=== PATIENT | female | born 1955 | race Caucasian/White ===

== ENCOUNTER 2017-09-11 12:09 | Emergency (ER) | payer OTHER, SELFPAY ==
--- OUTSIDE RECORDS SUMMARY | 2017-09-11 12:11 | XMS REPORT ---
:1955 Author Organization eClinicalWorks Care Team Providers Name Role Phone Jennifer Fountain Provider Role Unavailable Allergies No Known Allergies Problems Problem Type Condition Code Onset Dates Condition Status Problem Seasonal allergies J30.2 Active Problem Prediabetes R73.03 Active Problem Acquired hypothyroidism E03.9 Active Problem Breast cancer C50.919 Active Problem Hypertension, unspecified type I10 Active Problem GERD (gastroesophageal reflux K21.9 Active disease) Medications Medication Code Code Instructions Start End Status Dosage System Date Date Levothyroxine [facility] 40531673360 88 MCG Orally August 02, Active 1 tablet Sodium Once a day 2018 on an empty stomach in the morning Results No Known Results Summary Purpose eClinicalWorks Submission
--- OUTSIDE RECORDS SUMMARY | 2017-09-11 12:12 | XMS REPORT ---
:1955 Author Organization eClinicalWorks Care Team Providers Name Role Phone Jennifer Fountain Provider Role Unavailable Allergies, Adverse Reactions, Alerts Substance Reaction Event Type Sulfa Info Not Available Drug Allergy PCN Info Not Available Drug Allergy Problems Problem Type Condition Code Onset Dates Condition Status Assessment Abnormal kidney function study R94.4 Active Assessment Acquired hypothyroidism E03.9 Active Assessment Hypertension, unspecified type I10 Active Assessment Prediabetes R73.03 Active Problem Seasonal allergies J30.2 Active Problem Prediabetes R73.03 Active Problem Acquired hypothyroidism E03.9 Active Problem Breast cancer C50.919 Active Problem Hypertension, unspecified type I10 Active Problem GERD (gastroesophageal reflux K21.9 Active disease) Medications Medication Code Code Instructions Start End Status Dosage System Date Date Atenolol-Chlor [facility] 42325669736 50-25 MG Active TAKE 1 thalidone TABLET BY MOUTH DAILY Synthroid [facility] 77883883822 88 MCG Orally Active 1 tablet Once a day on an empty stomach in the morning Results Name Result Date Reference Range Unit Abnormality Flag TSH ----TSH 0.79 [id number] 0.40-4.50 mIU/L N RENAL FUNCTION PANEL ----CHLORIDE 100 09135875 98-110 mmol/L N ----POTASSIUM 3.2 89800252 3.5-5.3 mmol/L L ----SODIUM 140 46150401 135-146 mmol/L N ----BUN/CREATININ NOT APPLICABLE [id number] 6-22 (calc) E RATIO ----eGFR 74 [id number] > OR=60 mL/min/1.73 N ALGERIAN m2 ----CALCIUM 9.4 49819571 8.6-10.4 mg/dL N ----CARBON 33 [id number] 20-31 mmol/L H DIOXIDE ----ALBUMIN 4.4 59321562 3.6-5.1 g/dL N ----PHOSPHATE ( 3.4 [id number] 2.5-4.5 mg/dL N PHOSPHORUS) ----GLUCOSE 86 20170731 65-99 mg/dL N ----UREA NITROGEN 15 [id number] 7-25 mg/dL N (BUN) ----CREATININE 0.94 20170731 0.50-0.99 mg/dL N ----eGFR NON-AFR. 64 [id number] > OR=60 mL/min/1.73 N ALGERIAN m2 HEMOGLOBIN A1c ----HEMOGLOBIN 5.7 [id number] <5.7 % of total H A1c Hgb Summary Purpose eClinicalWorks Submission
--- NOTE | 2017-09-11 13:27 | RAD REPORT ---
EXAM DESCRIPTION: RAD - Ankle Left 3 View -09/11/2017 1:19 pm CLINICAL HISTORY: Left ankle pain FINDINGS: No fracture or dislocation is seen. Soft tissue swelling is present.
--- NOTE | 2017-09-11 15:03 | ER ---
Nurse's Notes [facility] Name: Lily Guzman Age: 62 yrs Sex: Female : 1955 Arrival Date: 09/11/2017 Time: 12:10 Bed 12 Private MD: DILAN LOZA Diagnosis: Sprain of ankle Presentation: 09/11 12:25 Presenting complaint: Patient states: Left ankle pain x 5 days. Pain began while hb walking in flip flops at [facility], became worse by the end of the day. Unable to bear weight. Transition of care: patient was not received from another setting of care. Onset of symptoms was September 07, 2017. Risk Assessment: Do you want to hurt yourself or someone else? Patient reports no desire to harm self or others. Initial Sepsis Screen: Does the patient meet any 2 criteria? No. Patient's initial sepsis screen is negative. Does the patient have a suspected source of infection? No. Patient's initial sepsis screen is negative. Care prior to arrival: None. 12:25 Method Of Arrival: Wheelchair hb 12:25 Acuity: MARIELA 4 hb Historical: - Allergies: 12:31 PENICILLINS; hb 12:31 Sulfa (Sulfonamide Antibiotics); hb - Home Meds: 12:31 atenolol 25 mg Oral tab [Active]; levothyroxine oral [Active]; hb - PMHx: 12:31 Breast CA; Hypertension; hb - PSHx: 12:31 Mastectomy - bilateral; hb - Immunization history:: Adult Immunizations up to date. - Social history:: Smoking status: Patient/guardian denies using tobacco. - Ebola Screening: : No symptoms or risks identified at this time. Screenin:46 Abuse screen: Denies threats or abuse. Denies injuries from another. Nutritional rv screening: No deficits noted. Tuberculosis screening: No symptoms or risk factors identified. Fall Risk None identified. Assessment: 14:44 General: Appears in no apparent distress. comfortable, Behavior is calm, cooperative. rv Pain: Complains of pain in anterior aspect of left ankle and dorsum of left foot Pain currently is 8 out of 10 on a pain scale. Neuro: Level of Consciousness is awake, alert, obeys commands, Oriented to person, place, time, situation. Cardiovascular: Heart tones S1 S2 present. Respiratory: Airway is patent. GI: No signs and/or symptoms were reported involving the gastrointestinal system. : No signs and/or symptoms were reported regarding the genitourinary system. EENT: No signs and/or symptoms were reported regarding the EENT system. Derm: Skin is intact. Musculoskeletal: Range of motion: limited in left ankle Swelling present in anterior aspect of left ankle and dorsum of left foot. Vital Signs: 12:29 BP 138 / 70; Pulse 60; Resp 16; Temp 98.5; Pulse Ox 100% on R/A; Weight 74.39 kg; hb Height 5 ft. 3 in. (160.02 cm); Pain 10/10; 14:57 BP 120 / 56; rv 12:29 Body Mass Index 29.05 (74.39 kg, 160.02 cm) hb ED Course: 12:10 Patient arrived in ED. sb2 12:11 DILAN LOZA is Private Physician. sb2 12:29 Triage completed. hb 12:29 Arm band placed on left wrist. hb 13:18 X-ray completed. Portable x-ray completed in exam room. Patient tolerated procedure ml well. 13:19 Ankle Left 3 View XRAY In Process Unspecified. EDMS 14:28 [facility]ait[facility] Camp[facility]de [facility] snw 14:28 Buddy Ly MD is Attending Physician. snw 14:46 Patient has correct armband on for positive identification. Call light in reach. NIBP rv on. 15:03 Hammad Wesley MD is Referral Physician. snw 15:18 No provider procedures requiring assistance completed. Patient did not have IV access rv during this emergency room visit. Administered Medications: 15:17 Drug: [place] (7.5 mg-325 mg) 1 tabs Route: PO; rv 15:17 Follow up: Response: Medication administered at discharge. rv Outcome: 15:03 Discharge ordered by . snw 15:18 Discharged to home via wheelchair. rv 15:18 Condition: improved 15:18 Discharge instructions given to patient, Instructed on discharge instructions, follow up and referral plans. medication usage, Prescriptions given X 3. 15:18 Patient left the ED. rv Signatures: Dispatcher [employer] EDMS Kaitlyn Campoverde FNP-C BOARD LINER OPERATOR-Rachel Devries Heather, RN RN Eleanor Yoon sb2 Panfilo Monge, RN RN rv
--- NOTE | 2017-09-11 15:03 | EDPHYS ---
Physician Documentation [facility] Name: Lily Guzman Age: 62 yrs Sex: Female : 1955 Arrival Date: 09/11/2017 Time: 12:10 Bed 12 Private MD: DILAN LOZA ED Physician Buddy Ly HPI: 09/11 16:27 This 62 yrs old Female presents to ER via Wheelchair with complaints of Ankle snw Injury. 16:27 The patient presents with pain, that is acute, swelling. The complaints affect the left snw ankle. Onset: The symptoms/episode began/occurred suddenly. Context: The problem was sustained outdoors, resulted from an unknown cause, The mechanism of injury is unknown. The patient is unable to bear weight. Associated signs and symptoms: Pertinent negatives: calf tenderness, fever, rash, tingling, warmth. Severity of symptoms: At their worst the symptoms were moderate. The patient has experienced a previous episode, last month. The patient has not recently seen a physician. Historical: - Allergies: 12:31 PENICILLINS; hb 12:31 Sulfa (Sulfonamide Antibiotics); hb - Home Meds: 12:31 atenolol 25 mg Oral tab [Active]; levothyroxine oral [Active]; hb - PMHx: 12:31 Breast CA; Hypertension; hb - PSHx: 12:31 Mastectomy - bilateral; hb - Immunization history:: Adult Immunizations up to date. - Social history:: Smoking status: Patient/guardian denies using tobacco. - Ebola Screening: : No symptoms or risks identified at this time. ROS: 16:26 Constitutional: Negative for fever, chills, and weight loss, Eyes: Negative for injury, snw pain, redness, and discharge, ENT: Negative for injury, pain, and discharge, Neck: Negative for injury, pain, and swelling, Cardiovascular: Negative for chest pain, palpitations, and edema, Respiratory: Negative for shortness of breath, cough, wheezing, and pleuritic chest pain, Abdomen/GI: Negative for abdominal pain, nausea, vomiting, diarrhea, and constipation, Back: Negative for injury and pain, : Negative for injury, bleeding, discharge, and swelling, Skin: Negative for injury, rash, and discoloration, Neuro: Negative for headache, weakness, numbness, tingling, and seizure. 16:26 MS/extremity: Positive for pain, swelling, tenderness, of the left ankle. Exam: 16:25 Constitutional: This is a well developed, well nourished patient who is awake, alert, snw and in no acute distress. Head/Face: Normocephalic, atraumatic. Eyes: Pupils equal round and reactive to light, extra-ocular motions intact. Lids and lashes normal. Conjunctiva and sclera are non-icteric and not injected. Cornea within normal limits. Periorbital areas with no swelling, redness, or edema. ENT: Nares patent. No nasal discharge, no septal abnormalities noted. Tympanic membranes are normal and external auditory canals are clear. Oropharynx with no redness, swelling, or masses, exudates, or evidence of obstruction, uvula midline. Mucous membranes moist. Neck: Trachea midline, no thyromegaly or masses palpated, and no cervical lymphadenopathy. Supple, full range of motion without nuchal rigidity, or vertebral point tenderness. No Meningismus. Chest/axilla: Normal chest wall appearance and motion. Nontender with no deformity. No lesions are appreciated. Cardiovascular: Regular rate and rhythm with a normal S1 and S2. No gallops, murmurs, or rubs. Normal PMI, no JVD. No pulse deficits. Respiratory: Lungs have equal breath sounds bilaterally, clear to auscultation and percussion. No rales, rhonchi or wheezes noted. No increased work of breathing, no retractions or nasal flaring. Abdomen/GI: Soft, non-tender, with normal bowel sounds. No distension or tympany. No guarding or rebound. No evidence of tenderness throughout. Back: No spinal tenderness. No costovertebral tenderness. Full range of motion. Skin: Warm, dry with normal turgor. Normal color with no rashes, no lesions, and no evidence of cellulitis. Neuro: Awake and alert, GCS 15, oriented to person, place, time, and situation. Cranial nerves II-XII grossly intact. Motor strength 5/5 in all extremities. Sensory grossly intact. Cerebellar exam normal. Normal gait. Psych: Awake, alert, with orientation to person, place and time. Behavior, mood, and affect are within normal limits. 16:25 Musculoskeletal/extremity: Extremities: grossly normal except: pain, swelling, ROM: no acute changes, Circulation is intact in all extremities. Sensation intact. Compartment Syndrome exam of affected extremity: is normal. Weight bearing: DVT Exam: no tenderness, negative Homans' sign noted on exam, no appreciated bluish discoloration, no erythema, no increased warmth, Calves: are non-tender, have equal circumference, + previous injury, worsened post walking in flip flops for most of the day. Vital Signs: 12:29 BP 138 / 70; Pulse 60; Resp 16; Temp 98.5; Pulse Ox 100% on R/A; Weight 74.39 kg; hb Height 5 ft. 3 in. (160.02 cm); Pain 10/10; 14:57 BP 120 / 56; rv 12:29 Body Mass Index 29.05 (74.39 kg, 160.02 cm) hb MDM: 14:29 Patient medically screened. snw 16:27 Data reviewed: vital signs, nurses notes. Data interpreted: Pulse oximetry: on room air snw is 100 %. Interpretation: normal. Counseling: I had a detailed discussion with the patient and/or guardian regarding: the historical points, exam findings, and any diagnostic results supporting the discharge/admit diagnosis, radiology results, the need for outpatient follow up, to return to the emergency department if symptoms worsen or persist or if there are any questions or concerns that arise at home. Special discussion: Based on the history and exam findings, there is no indication for further emergent testing or inpatient evaluation. I discussed with the patient/guardian the need to see the orthopedic surgeon for further evaluation of the symptoms. I discussed with the patient/guardian the need to see the primary care provider for further evaluation of the symptoms. 09/11 12:31 Order name: Ankle Left 3 View XRAY; Complete Time: 13:35 snw 09/11 15:02 Order name: Aircast Ankle Splint; Complete Time: 15:07 snw Administered Medications: 15:17 Drug: Agness (7.5 mg-325 mg) 1 tabs Route: PO; rv 15:17 Follow up: Response: Medication administered at discharge. rv Disposition: 09/12 09:41 Co-signature as Attending Physician, Buddy Ly MD I agree with the assessment and marjorie plan of care. Disposition: 09/11/17 15:03 Discharged to Home. Impression: Sprain of ankle. - Condition is Stable. - Discharge Instructions: Elastic Bandage and RICE, Ankle Sprain, Crutch Use, Hypertension, Cryotherapy, Heat Therapy. - Prescriptions for Tylenol- Codeine #3 300-30 mg Oral Tablet - take 2 tablets by ORAL route every 6 hours As needed; 15 tablet. Diclofenac Sodium 75 mg Oral Tablet Sustained Release - take 1 tablet by ORAL route 2 times per day; 30 tablet. orphenadrine citrate 100 mg Oral Tablet Sustained Release - take 1 tablet by ORAL route 2 times per day As needed; 20 tablet. - Medication Reconciliation Form, Thank You Letter, Antibiotic Education, Prescription Opioid Use form. - Follow up: Hammad Wesley MD; When: 2 - 3 days; Reason: If symptoms return, Recheck today's complaints, Continuance of care. Signatures: Dispatcher [employer] EDBuddy Fonseca MD MD cha Therrien, Shelly, CALI-C ENVELOPE FOLD OPERATOR-Csnw Payal Black, JOSUE RN Panfilo Beltran RN RN rv Corrections: (The following items were deleted from the chart) 09/11 15:18 15:03 09/11/2017 15:03 Discharged to Home. Impression: Sprain of ankle. Condition is rv Stable. Forms are Medication Reconciliation Form, Thank You Letter, Antibiotic Education, Prescription Opioid Use. Follow up: Hammad Wesley; When: 2 - 3 days; Reason: If symptoms return, Recheck today's complaints, Continuance of care. snw
[2017-09-11] MEDS ORDERED: HYDROCODONE/APAP 7.5/325 MG TAB ONE (15:11)
[2017-09-11 15:34] VITALS: TEMP 98.5; O2SAT 100
[2017-09-11 15:35] VITALS: BP 120/56
== END 2017-09-11 15:18 | disposition home or self-care (01) ==
LOC: ER 12:09
DX: S93.402A Sprain of unspecified ligament of left ankle, initial encounter (principal); I10 Essential (primary) hypertension; X58.XXXA Exposure to other specified factors, initial encounter; Y93.9 Activity, unspecified; Y92.9 Unspecified place or not applicable; Y99.9 Unspecified external cause status; Z88.0 Allergy status to penicillin; Z88.2 Allergy status to sulfonamides
CPT/HCPCS: 99283

== ENCOUNTER 2017-10-21 09:53 | Inpatient (IN) | payer OTHER, SELFPAY ==
--- OUTSIDE RECORDS SUMMARY | 2017-10-21 09:55 | XMS REPORT ---
[...] End Status Dosage System Date Date Atenolol-Chlor [facility] 44530420861 50-25 MG Active TAKE 1 thalidone TABLET BY MOUTH DAILY Synthroid [facility] 67997564597 88 MCG Orally Active 1 tablet Once a day on an empty stomach in the morning Results Name Result Date Reference Range Unit Abnormality Flag TSH ----TSH 0.79 [id number] 0.40-4.50 mIU/L N RENAL FUNCTION PANEL ----CHLORIDE 100 88578665 98-110 mmol/L N ----POTASSIUM 3.2 55705758 3.5-5.3 mmol/L L ----SODIUM 140 72162722 135-146 mmol/L N ----BUN/CREATININ NOT APPLICABLE 94147766 6-22 (calc) E RATIO ----eGFR 74 20170731 > OR=60 mL/min/1.73 N MALTESE m2 ----CALCIUM 9.4 19281581 8.6-10.4 mg/dL N ----CARBON 33 31619458 20-31 mmol/L H DIOXIDE ----ALBUMIN 4.4 71447339 3.6-5.1 g/dL N ----PHOSPHATE ( 3.4 46109550 2.5-4.5 mg/dL N PHOSPHORUS) ----GLUCOSE 86 20170731 65-99 mg/dL N ----UREA NITROGEN 15 20170731 7-25 mg/dL N (BUN) ----CREATININE 0.94 20170731 0.50-0.99 mg/dL N ----eGFR NON-AFR. 64 20170731 > OR=60 mL/min/1.73 N MALTESE m2 HEMOGLOBIN A1c ----HEMOGLOBIN 5.7 20170731 <5.7 % of total H A1c Hgb Summary Purpose eClinicalWorks Submission
--- OUTSIDE RECORDS SUMMARY | 2017-10-21 09:55 | XMS REPORT ---
[...] End Status Dosage System Date Date Levothyroxine [facility] 60206580610 88 MCG Orally August 02, Active 1 tablet Sodium Once a day 2018 on an empty stomach in the morning Results No Known Results Summary Purpose eClinicalWorks Submission
--- OUTSIDE RECORDS SUMMARY | 2017-10-21 09:55 | XMS REPORT ---
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
[2017-10-21] MEDS ORDERED: NA CHLORIDE 0.9% 2,000 ML ONE (10:55)
[2017-10-21 12:45] LABS: Absolute Lymphocytes (CBC) 0.9 K/uL (0.7-4.9); Absolute Monocytes 0.9 K/uL (0.1-1.3); Absolute Neutrophil 11.3 K/uL (1.8-8.0); Basophils % 0.4 % (0-1.3); Eosinophils % 0.8 % (0-4.4); Hematocrit 39.2 % (36.0-45.0); Lymphocytes % 6.9 % (15.3-44.8); MCH 28.2 pg (27.0-35.0); MCV 84.2 fL (80-100); Monocytes % 6.6 % (3.3-12.3); RBC Red Blood Cell Count 4.65 M/uL (3.86-4.86)
[2017-10-21 13:26] LABS: Albumin 3.4 g/dL (3.4-5.0); Bilirubin Direct 0.8 mg/dL (0-0.2); Bilirubin Total 2.4 mg/dL (0.2-1.0); Protein, Total 8.3 g/dL (6.4-8.2)
[2017-10-21 13:28] LABS: Potassium 2.4 mmol/L (3.5-5.1)
[2017-10-21 13:29] LABS: Blood Morphology Comment NOT SEEN (NOT SEEN); Platelet Estimate ADEQ
[2017-10-21 13:53] LABS: Urine Blood TRACE (NEG); Urine Glucose NEGATIVE (NEG); Urine Protein NEGATIVE (NEG)
--- NOTE | 2017-10-21 14:46 | RAD REPORT ---
EXAM DESCRIPTION: CT - Abdomen Pelvis W Contrast - 10/21/2017 2:11 pm CLINICAL HISTORY: ABD PAIN IV ONLY<Reason For Exam>ABD PAIN IV ONLY Abdominal abscess COMPARISON: No comparisons<Comparisons> TECHNIQUE: Biphasic, helical CT imaging of the abdomen and pelvis was performed following 100 ml non -ionic IV contrast. Oral contrast was given. All CT scans are performed using dose optimization technique as appropriate and may include automated exposure control or mA/KV adjustment according to patient size. FINDINGS: No suspicious findings in the lung bases. Liver shows mild diffuse fatty infiltration pattern. No focal liver lesion. Spleen and pancreas show no suspicious findings. Gallbladder and biliary tree are also without suspicious finding. Left kidney is substantially smaller than the right. Areas cortical thinning are noted. No acute gordo l parenchymal process seen. No urinary bladder abnormality. Adrenal glands are normal. There are mult iple dilated veins in the left upper quadrant. No dilated bowel loops or bowel wall thickening. No free air, free fluid or inflammatory stranding w ithin the peritoneal or retroperitoneal spaces. No mass or bulky lymphadenopathy. In the subcutaneous fatty tissues midline abdomen approximately 3 cm superior to the umbilicus there is a 5.5 centimeter diameter abscess. Air and fluid are present. This extends from skin surface to th e abdominal wall. There is stranding abutting the abdominal wall but no extension into the peritoneal space. No thickening or edema in the rectus musculature. No suspicious bony findings. IMPRESSION: Approximately 5-6 centimeter midline abscess in the subcutaneous fatty tissues superior to the umbilicus. No involvement of the rectus musculature and no extension into the peritoneal space. Additional nonacute findings detailed in the body of the report.
[2017-10-21] MEDS ORDERED: VANCOMYCIN 1 GM/250 ML BAG ONE (14:48)
--- NOTE | 2017-10-21 14:49 | EDPHYS ---
Physician Documentation [facility] Name: Lily Guzman Age: 62 yrs Sex: Female : 1955 Arrival Date: 10/21/2017 Time: 09:54 Bed 18 Private MD: Harjinder Canchola ED Physician Chu Calvillo HPI: 10/21 12:28 This 62 yrs old Female presents to ER via Ambulatory with complaints of Cyst. [facility] 12:28 The patient presents with an abscess of the abdomen. Description: The affected area is jmm moderate sized, erythematous. Onset: The symptoms/episode began/occurred gradually, 1 week(s) ago. Possible cause(s): infected cyst. Associated signs and symptoms: Pertinent positives: drainage, erythema, fever, swelling. This is a 62 year old female with a history of breast cancer, HTN that presents to the ED with redness and swelling to her lower abdomen. Patient states she developed a fever of 105 this past and was prescribed doxycyline which she states she has been unable to tolerate due to vomiting. . Historical: - Allergies: 10:10 PENICILLINS; hj 10:10 Sulfa (Sulfonamide Antibiotics); hj - Home Meds: 10:10 atenolol 25 mg Oral tab [Active]; levothyroxine oral [Active]; hj - PMHx: 10:10 BREAST CA; Hypertension; hj - PSHx: 10:10 Unable to obtain; hj - Immunization history:: Adult Immunizations up to date. - Social history:: Smoking status: Patient/guardian denies using tobacco, Patient/guardian denies using alcohol. - Ebola Screening: : Patient negative for fever greater than or equal to 101.5 degrees Fahrenheit, and additional compatible Ebola Virus Disease symptoms Patient denies exposure to infectious person Patient denies travel to an Ebola-affected area in the 21 days before illness onset. ROS: 12:28 Eyes: Negative for injury, pain, redness, and discharge, Cardiovascular: Negative for jmm chest pain, palpitations, and edema, Respiratory: Negative for shortness of breath, cough, wheezing, and pleuritic chest pain. 12:28 Back: Negative for injury and pain. 12:28 Constitutional: Positive for body aches, fever. 12:28 Abdomen/GI: Positive for abdominal pain, nausea and vomiting. 12:28 Skin: Positive for erythema, swelling. 12:28 All other systems are negative. Exam: 12:28 Head/Face: atraumatic. Chest/axilla: Normal chest wall appearance and motion. [facility] 12:28 Constitutional: The patient appears in no acute distress, alert, awake. 12:28 Cardiovascular: Rate: normal, Rhythm: regular. 12:28 Respiratory: the patient does not display signs of respiratory distress, Respirations: normal, Breath sounds: are clear throughout. 12:28 Abdomen/GI: Inspection: erythema noted to the lower abdomen, Bowel sounds: normal, Palpation: mild abdominal tenderness, in the right lower quadrant and left lower quadrant. 12:28 Back: ROM is normal. 12:28 Musculoskeletal/extremity: ROM: intact in all extremities. 12:28 Skin: cellulitis, that is moderate, on the abdomen. 12:28 Neuro: Orientation: is normal, Mentation: is normal, Memory: is normal. 12:28 Psych: Behavior/mood is pleasant, cooperative. Vital Signs: 12:23 BP 101 / 44; Pulse 78; Resp 18; Temp 97.8(TE); Pulse Ox 97% on R/A; Weight 65.77 kg; hj Height 5 ft. 5 in. (165.10 cm); Pain 10/10; 13:00 BP 115 / 60; Pulse 85; Resp 18; Pulse Ox 98% on R/A; hj 13:56 BP 110 / 56; Pulse 74; Resp 18; Pulse Ox 100% on R/A; hj 15:10 BP 112 / 60; Pulse 76; Resp 18; Pulse Ox 100% on R/A; hj 12:23 Body Mass Index 24.13 (65.77 kg, 165.10 cm) MDM: 11:44 Patient medically screened. [facility] 14:37 Data reviewed: vital signs, nurses notes, lab test result(s). Counseling: I had a [facility] detailed discussion with the patient and/or guardian regarding: the historical points, exam findings, and any diagnostic results supporting the discharge/admit diagnosis, the need for further work-up and treatment in the hospital. Physician consultation: Frank Badillo MD. 14:45 ED course: I discussed the patient with Dr. Dyson whom accepted admission. . [facility] 10/21 12:38 Order name: Lactate; Complete Time: 12:44 EDMS 10/21 12:47 Order name: CBC with Automated Diff; Complete Time: 13:35 [facility] 10/21 13:18 Order name: Urine Dipstick--Ancillary (enter results); Complete Time: 14:03 10/21 13:19 Order name: Basic Metabolic Panel; Complete Time: 13:35 [facility] 10/21 11:54 Order name: Urine Test (obtain specimen); Complete Time: 13:[address] [facility] 10/21 11:54 Order name: IV Saline Lock; Complete Time: 12:[address] [facility] 10/21 11:54 Order name: Labs collected and sent; Complete Time: 12:[address] [facility] 10/21 11:54 Order name: Urine Dipstick-Ancillary (obtain specimen); Complete Time: 13:[address] [facility] 10/21 12:52 Order name: Abdomen ; Complete Time: 14:54 [facility] 10/21 13:19 Order name: Liver (Hepatic) Function; Complete Time: 13:35 [facility] 10/21 13:19 Order name: Amylase Level; Complete Time: 13:35 [facility] 10/21 13:19 Order name: Lipase; Complete Time: 13:35 [facility] 10/21 13:19 Order name: Procalcitonin; Complete Time: 13:35 [facility] 10/21 13:19 Order name: Blood Culture [facility] 10/21 13:19 Order name: Blood Culture [facility] 10/21 13:30 Order name: Manual Differential; Complete Time: 13:35 EDMS Administered Medications: 14:37 Drug: vancoMYCIN 1 grams Route: IVPB; Infused Over: 2 hrs; Site: left antecubital; hj 15:12 Follow up: IV Status: Infusion continued; Infusion continued upon admission hj Disposition: 15:40 Co-signature as Attending Physician, Chu Calvillo MD I agree with the assessment and kdr plan of care. Disposition: 10/21/17 14:47 Hospitalization ordered by Acacia Dyson for Observation. Preliminary diagnosis is Abscess/Cellulitis of the abdominal wall. - Bed requested for Telemetry/MedSurg (observation). - Status is Observation. hj - Condition is Stable. - Problem is new. - Symptoms are unchanged. UTI on Admission? No Signatures: Dispatcher [employer] [facility] Chu Calvillo MD MD kdr Mickail, Joel, PA PA Camilo Marks, RN RN Claribel Anne Corrections: (The following items were deleted from the chart) 14:08 12:44 AMYLASE, SERUM+C.LAB.BRZ ordered. EDMS EDMS 14:08 12:44 BASIC METABOLIC PANEL+C.LAB.BRZ ordered. EDMS EDMS 14:08 12:44 CBC+H.LAB.BRZ ordered. EDMS EDMS 14:08 12:44 Creatinine for Radiology+C.LAB.BRZ ordered. EDMS EDMS 14:08 12:44 HEPATIC FUNCTION+C.LAB.BRZ ordered. EDMS EDMS 14:08 12:44 LIPASE+C.LAB.BRZ ordered. EDMS EDMS 14:09 12:44 UA MICROSCOPIC+U.LAB.BRZ ordered. EDMS EDMS 14:09 12:44 LACTATE+C.LAB.BRZ ordered. EDMS EDMS 14:09 12:44 Procalcitonin+C.LAB.BRZ ordered. EDMS EDMS 14:10 12:44 Abdomen Pelvis W Con+CT.RAD.BRZ ordered. EDMS EDMS 14:11 12:44 BLOOD CULTURE*+BA.LAB.BRZ ordered. EDMS EDMS 15:21 14:47 Hospitalization Ordered by Acacia Dyson MD for Observation. Preliminary eb diagnosis is Abscess/Cellulitis of the abdominal wall. Bed requested for Telemetry/MedSurg (observation). Status is Observation. Condition is Stable. Problem is new. Symptoms are unchanged. UTI on Admission? No. [facility] 15:38 15:21 10/21/2017 14:47 Hospitalization Ordered by Acacia Dyson MD for Observation. Preliminary diagnosis is Abscess/Cellulitis of the abdominal wall. Bed requested for Telemetry/MedSurg (observation). Status is Observation. Condition is Stable. Problem is new. Symptoms are unchanged. UTI on Admission? No. eb
--- NOTE | 2017-10-21 14:49 | ER ---
Nurse's Notes [facility] Name: iLly Guzman Age: 62 yrs Sex: Female : 1955 Arrival Date: 10/21/2017 Time: 09:54 Bed 18 Private MD: Harjinder Canchola Diagnosis: Abscess/Cellulitis of the abdominal wall Presentation: 10/21 10:10 Acuity: MARIELA 3 hj 10:10 Presenting complaint: Patient states: abscess on the abdomen with pus; reports fever hj and chills;. Transition of care: patient was not received from another setting of care. Onset of symptoms was October 21, 2017. Risk Assessment: Do you want to hurt yourself or someone else? Patient reports no desire to harm self or others. Initial Sepsis Screen: Does the patient meet any 2 criteria? Yes Does the patient have a suspected source of infection? Yes: Skin breakdown/wound. Care prior to arrival: None. 10:10 Method Of Arrival: Ambulatory hj Triage Assessment: 10:10 General: Appears in no apparent distress. uncomfortable, Behavior is calm, cooperative, hj appropriate for age. Pain: Complains of pain in abdomen. Historical: - Allergies: 10:10 PENICILLINS; hj 10:10 Sulfa (Sulfonamide Antibiotics); hj - Home Meds: 10:10 atenolol 25 mg Oral tab [Active]; levothyroxine oral [Active]; hj - PMHx: 10:10 BREAST CA; Hypertension; hj - PSHx: 10:10 Unable to obtain; hj - Immunization history:: Adult Immunizations up to date. - Social history:: Smoking status: Patient/guardian denies using tobacco, Patient/guardian denies using alcohol. - Ebola Screening: : Patient negative for fever greater than or equal to 101.5 degrees Fahrenheit, and additional compatible Ebola Virus Disease symptoms Patient denies exposure to infectious person Patient denies travel to an Ebola-affected area in the 21 days before illness onset. Screenin:10 Abuse screen: Denies threats or abuse. Denies injuries from another. Nutritional hj screening: No deficits noted. Tuberculosis screening: No symptoms or risk factors identified. Fall Risk None identified. Assessment: 10:10 General: Appears in no apparent distress. uncomfortable, Behavior is calm, cooperative, hj appropriate for age. Pain: Complains of pain in abdomen. Neuro: Level of Consciousness is awake, alert, obeys commands, Oriented to person, place, time, situation, Appropriate for age. Cardiovascular: Capillary refill < 3 seconds Patient's skin is warm and dry. Respiratory: Airway is patent Respiratory effort is even, unlabored, Respiratory pattern is regular, symmetrical. GI: No signs and/or symptoms were reported involving the gastrointestinal system. : No signs and/or symptoms were reported regarding the genitourinary system. EENT: No signs and/or symptoms were reported regarding the EENT system. Derm: Abscess located on abdomen. Musculoskeletal: No signs and/or symptoms reported regarding the musculoskeletal system. 11:30 Reassessment: Patient and/or family updated on plan of care and expected duration. Pain hj level reassessed. Patient is alert, oriented x 3, equal unlabored respirations, skin warm/dry/pink. awaiting results and POC;. 12:47 Reassessment: Patient and/or family updated on plan of care and expected duration. Pain hj level reassessed. Patient is alert, oriented x 3, equal unlabored respirations, skin warm/dry/pink. awaiting POC;. 13:56 Reassessment: Patient and/or family updated on plan of care and expected duration. Pain hj level reassessed. Patient is alert, oriented x 3, equal unlabored respirations, skin warm/dry/pink. wheeled CT;. 15:09 Reassessment: Patient and/or family updated on plan of care and expected duration. Pain hj level reassessed. Patient is alert, oriented x 3, equal unlabored respirations, skin warm/dry/pink. awaiting for surgery; pt informed on NPO; consent be done at the OR suite;. 15:25 Reassessment: PURCHASING INTERN Eleonora andrade pt to OR; pt belongings placed on belonging bag hj handed off to RN;. Vital Signs: 12:23 BP 101 / 44; Pulse 78; Resp 18; Temp 97.8(TE); Pulse Ox 97% on R/A; Weight 65.77 kg; hj Height 5 ft. 5 in. (165.10 cm); Pain 10/10; 13:00 BP 115 / 60; Pulse 85; Resp 18; Pulse Ox 98% on R/A; hj 13:56 BP 110 / 56; Pulse 74; Resp 18; Pulse Ox 100% on R/A; hj 15:10 BP 112 / 60; Pulse 76; Resp 18; Pulse Ox 100% on R/A; hj 12:23 Body Mass Index 24.13 (65.77 kg, 165.10 cm) ED Course: 09:54 Patient arrived in ED. mr 09:54 Harjinder Canchola MD is Private Physician. mr 10:10 Arm band placed on right wrist. hj 10:10 Patient has correct armband on for positive identification. Placed in gown. Bed in low hj position. Call light in reach. Side rails up X 1. Adult w/ patient. 10:10 Inserted saline lock: 22 gauge in left antecubital area, using aseptic technique. Blood hj collected. 10:10 Initial lab(s) drawn, by me, sent to lab. First set of blood cultures drawn by me. hj 10:15 Second set of blood cultures drawn. hj 11:18 Camilo Olson RN is Primary Nurse. hj 11:41 Oscar Andres PA is PHCP. kdr 11:45 Chu Calvillo MD is Attending Physician. jmm 12:20 Triage completed. hj 14:06 CT completed. Patient moved to CT via wheelchair. Patient moved to MRI. cw1 14:12 Abdomen In Process Unspecified. EDMS 14:46 Acacia Dyson MD is Hospitalizing Provider. [facility] 15:26 No provider procedures requiring assistance completed. Patient admitted, IV remains in hj place. intact. Administered Medications: 14:37 Drug: vancoMYCIN 1 grams Route: IVPB; Infused Over: 2 hrs; Site: left antecubital; hj 15:12 Follow up: IV Status: Infusion continued; Infusion continued upon admission Outcome: 14:47 Decision to Hospitalize by Provider. jm 15:27 Admitted to OR accompanied by nurse, via stretcher, with chart, Other informed that pt hj will go to room 410 after surgery and report not given yet; Report called to JOSUE Crews; 15:27 Condition: stable 15:27 Instructed on the need for admit, Demonstrated understanding of instructions. 15:38 Patient left the ED. Signatures: Dispatcher [employer] EDMS Chu Calvillo MD MD kdr Oscar Andres PA PA jmm Rivera, Maria mr Woodley, Crystal cw1 Camilo Olson, RN RN hj
--- NOTE | 2017-10-21 15:15 | P.HP ---
Certification for Inpatient Patient admitted to: Observation With expected LOS: <2 Midnights Patient will require the following post-hospital care: None Practitioner: I am a practitioner with admitting privileges, knowledge of patient current condition, hospital course, and medical plan of care. Services: Services provided to patient in accordance with Admission requirements found in Title 42 Section 412.3 of the Code of Federal Regulations Patient History Date of Service: 10/22/17 Primary Care Provider: Dr Fiore Reason for admission: Abdominal Abscess History of Present Illness: 62 y/o F with H/o of HTN presented to the ED with Abdominal Wall abscess. She was recently seen by her PCP 3 days and was started on PO ABX. Pt however had no improvement and thus decided to come to the ER. There was a concern that patient might not have tolerated her ABX however, Pt states she took her abx and did not have any resolution and thus he decided to come to the ER. Pt also reports Chills, Fever along with the abdominal pain. Denies CP, SOB, N/V or any other associated symptoms Pt seen the er and taken straight to the OR. Will be admitted to the hospital for Failed outpt therapy abdominal Abscess. Allergies Penicillins Allergy (Mild, Verified 10/22/17 02:01) Rash Sulfa (Sulfonamide Allergy (Uncoded 09/11/17 15:23) Unknown Home medications list reviewed: Yes Home Medications: Atenolol/Chlorthalidone [Atenolol-Chlorthal 50-25 Tb] 1 each PO DAILY 10/21/17 Levothyroxine Sodium 100 mcg PO DAILY 10/21/17 - Past Medical/Surgical History Has patient received pneumonia vaccine in the past: Yes Diabetic: No -: HTN Past Surgical History: Reviewed- Non-Contributory - Family History Family History: Reviewed- Non-Contributory - Family History Father -: Other (see notes) Notes: spasmodic torticolis, prostate CA, tumor on esphagus Mother -: Hypertension - Social History Smoking Status: Never smoker Counseled patient to stop smoking for: more than 10 minutes Smoking therapy provided: Yes Patient receptive to therapy: No Alcohol use: No CD- Drugs: No Caffeine use: No Place of Residence: Home Review of Systems 10-point ROS is otherwise unremarkable Physical Examination - Physical Exam General: Alert, In no apparent distress HEENT: Atraumatic, PERRLA, Mucous membr. moist/pink, EOMI, Sclerae nonicteric Neck: Supple, 2+ carotid pulse no bruit, No LAD, Without JVD or thyroid abnormality Respiratory: Clear to auscultation bilaterally, Normal air movement Cardiovascular: Regular rate/rhythm, Normal S1 S2 Gastrointestinal: Normal bowel sounds, No tenderness Musculoskeletal: No tenderness Integumentary: Other (Abdominal wall Abscess) Neurological: Normal speech, Normal strength at 5/5 x4 extr, Normal tone Lymphatics: No axilla or inguinal lymphadenopathy - Studies Laboratory Data (last 24 hrs) 10/21/17 11:54: Creatinine Cancelled 10/21/17 11:54: WBC Cancelled, Hgb Cancelled, Hct Cancelled, Plt Count Cancelled 10/21/17 11:54: Sodium Cancelled, Potassium Cancelled, BUN Cancelled, Creatinine Cancelled, Glucose Cancelled, Total Bilirubin Cancelled, AST Cancelled, ALT Cancelled, Alkaline Phosphatase Cancelled, Amylase Cancelled, Lipase Cancelled 10/21/17 10:25: Sodium 135 L, Potassium 2.4 L*, BUN 18, Creatinine 1.20, Glucose 134 H, Total Bilirubin 2.4 H, AST 16, ALT 24, Alkaline Phosphatase 129 H , Amylase 30, Lipase 106 10/21/17 10:25: WBC 13.2 H, Hgb 13.1, Hct 39.2, Plt Count 214 Assessment and Plan - Problems (Diagnosis) (1) Abdominal abscess Current Visit: Yes Status: Acute Plan: 5 to 6 CM abdominal Abscess on the CT. Failed Outpt therapy -Started on IV vanc -General Surgery consulted. awaiting Reccs -Wound culture and Blood culture -NPO for now (2) HTN (hypertension) Current Visit: Yes Status: Chronic Plan: Restart Home medication Discharge Plan: Home Plan to discharge in: 48 Hours - Advance Directives Does patient have a Living Will: No Does patient have a Durable POA for Healthcare: No - Code Status/Comfort Care Code Status Assessed: Yes Critical Care: No
[2017-10-21] MEDS ORDERED: Ringers Lactate 1,000 ML IV ONE (15:40)
[2017-10-21] MEDS ORDERED: BUPIVACAINE 0.25% PF 10 ML VIAL ONE (16:31)
[2017-10-21] MEDS ORDERED: PROPOFOL 200 MG/20 ML VIAL IV ONE (16:47)
[2017-10-21] MEDS ORDERED: FENTANYL CITR 100 MCG/2 ML ONE (16:48)
[2017-10-21] MEDS ORDERED: KETOROLAC 30 MG/ML INJ ONE (17:07)
--- NOTE | 2017-10-21 17:15 | P.OP ---
Preoperative diagnosis: Abdominal Skin Abscess Postoperative diagnosis: Abdominal Skin Abscess Primary procedure: Incision and Drainage of Abdominal Skin Abscess Anesthesia: GETA + Local Estimated blood loss: <5cc Specimen: Sebaceous Material Findings: Sebaceous material Complications: None Transferred to: Recovery Room Condition: Good
[2017-10-21] MEDS ORDERED: DEXAMETHASONE 4 MG/ML VIAL ONE (17:16)
[2017-10-21] MEDS ORDERED: ONDANSETRON HCL 40 MG/20 ML VIAL ONE (17:16)
[2017-10-21] MEDS ORDERED: ONDANSETRON 4 MG/2 ML VIAL IV PRN (18:01)
[2017-10-21 18:32] VITALS: BMI 24.1
[2017-10-21] MEDS: NA CHLORIDE 0.9% 1,000 ML IV SCH (19:02)
[2017-10-21] MEDS: POTASSIUM CL 40 MEQ in NA CHLORIDE 0.9% 500 ML IV SCH ×2 (19:02→22:05)
--- NOTE | 2017-10-21 19:24 | CON ---
Date of Consultation: 10/21/2017 Brief History Of Present Illness: The patient is a 62-year-old female, who presented with approximately 1-week history of epigastric abdominal pain, swelling, cellulitis, which developed an a bscess the last few days. She had subsequent fever, chills, and some mild nausea. She has had no ot her systemic complaints. No other associated complaints associated with this particular process. Th ere is no spontaneous drainage, but the skin on top has become excoriated, somewhat and tender to pal pation, and quite warm. She had some subjective fevers at home. Otherwise, these are her only findi ngs. Past Medical History: Significant for hypertension and breast cancer. Past Surgical History: She has had abdominoplasty and breast reconstruction after mastectomy bilater ally. Allergies: PENICILLIN AND SULFA. Home Medications: Reviewed. Family History: Reviewed and noncontributory. Social History: She denies smoking, alcohol, or recreational drug use. Review of Systems: A 10-point review of systems other than HPI, denies. Physical Examination: Vital Signs: At the time of my examination, her BMI is 24.1, her pulse is 74, respiratory rate 18, b lood pressure 112/62, temperature 97.8. General: She is awake, alert, and oriented. Psychiatric: She is appropriate, conversive. HEENT: She is normocephalic. Sclerae anicteric. Mucous members are moist. Oropharynx clear. Neck: Supple. No JVD. Chest: Normal expansion and excursion. Cardiovascular: Regular rate and rhythm. Pulmonary: Clear to auscultation bilaterally. Abdomen: Soft with positive area of approximately 5-6 cm of redness, swelling in the supraumbilical position in the midline, consistent with an abscess. There is fluctuance in the area and tenderness to palpation. It is warm also to the touch. The remainder of the abdominal exam is essentially fabian gn. Extremities: No clubbing, cyanosis, or edema. Laboratory Data: Reveals a white blood cell count 13.2, hemoglobin 31 over hematocrit of 39.2, plate let count is 214, neutrophils 85%. Her sodium is 135, potassium 2.4, chloride 94, carbon dioxide 29, BUN 18, creatinine 1.2, glucose is 134, lactic acid 1.4, total bilirubin 2.4, direct component 0.8, alkaline phosphatase 129. Her procalcitonin was canceled, 106 was the lipase. She had a CT scan performed of abdomen and pelvis, which was officially read as an approximately 5.5 cm abscess in the subcutaneous position without communication in the intraabdominal position. There is no involvement of the rectus musculature. No extension in peritoneal space. She has a single kid sae in that the left kidney is substantially smaller than right. Assessment And Plan: This is a 62-year-old female who comes with a large subcutaneous abscess. 1.IV fluid hydration. 2.Antibiotic coverage with vancomycin. 3.I have explained the risks, benefits, and alternatives of incision and drainage of the abdominal w all abscess, including, but not limited to bleeding, infection, damage to the surrounding tissue, nee d for further operating procedures. She agrees to proceed as indicated. CONNOR/TRACY Voice ID: [id number] Report ID: [id number]
--- NOTE | 2017-10-21 19:55 | OP ---
Date of Procedure: 10/21/2017 Surgeon: Frank Badillo MD, Preoperative Diagnosis: Abdominal skin abscess. Postoperative Diagnosis: Abdominal skin abscess. Procedure Performed: Incision and drainage of abdominal skin abscess. Anesthesia: General endotracheal plus local with 0.25% Marcaine. Estimated Blood Loss: 5 cc. Specimens: Sebaceous material and culture sent for both aerobic and anaerobic speciation. Findings: Consistent with a ruptured sebaceous cyst with conversion to abscess. Sebaceous material was evident throughout. Complications: None. Disposition: Transferred to recovery room in good condition. Procedure In Detail: After informed consent was obtained, the patient was brought to the operating r oom, prepped and draped in the usual sterile fashion. After adequate anesthesia was achieved, a line ar incision was made overlying the area of the infected sebaceous cyst/abscess in the supraumbilical midline position for approximately 5 cm. Immediately purulent, foul, malodorous liquid was appreciat ed. This was cultured at this time, and the area was completely suctioned out until completely clear . Aerobic and anaerobic cultures were sent and a capsule of sebaceous material was appreciated. Thi s was completely removed and partially sent off for pathologic examination. The remainder of it was removed by both sharp and blunt dissection as well as electrocautery and curette. Once it was comple tely removed, the area was copiously irrigated multiple times. Hemostasis was achieved easily with e lectrocautery. The area was copiously irrigated multiple times once again until completely clean, an d it was packed with Betadine-soaked Kerlix. Sterile dressing was placed over the top. The patient tolerated the procedure well without evidence of complication, transferred to PACU in good condition. All counts were correct at the end of the case. CONNOR/TRACY Voice ID: [id number] Report ID: [id number]
[2017-10-22] MEDS: NA CHLORIDE 0.9% 1,000 ML IV SCH ×3 (03:27→20:03)
[2017-10-22 05:35] LABS: Absolute Lymphocytes (CBC) 0.6 K/uL (0.7-4.9); Absolute Monocytes 0.2 K/uL (0.1-1.3); Absolute Neutrophil 9.7 K/uL (1.8-8.0); Basophils % 2.5 % (0-1.3); Eosinophils % 0.5 % (0-4.4); Hematocrit 37.4 % (36.0-45.0); Lymphocytes % 5.3 % (15.3-44.8); MCH 28.8 pg (27.0-35.0); MPV 8.8 fL (7.6-11.3); Monocytes % 1.6 % (3.3-12.3); RBC Red Blood Cell Count 4.36 M/uL (3.86-4.86)
[2017-10-22 05:56] LABS: Albumin 2.8 g/dL (3.4-5.0); Bilirubin Total 0.9 mg/dL (0.2-1.0); Magnesium 1.8 mg/dL (1.8-2.4); Potassium 3.3 mmol/L (3.5-5.1); Protein, Total 6.8 g/dL (6.4-8.2)
[2017-10-22] MEDS ORDERED: MAGNESIUM SULFATE 1 gm IVPB 1 GM/100 ML BAG IV ONE (06:30)
[2017-10-22] MEDS: KCL 20 MEQ/100 mL IVPB 20 MEQ/100 ML BAG IV SCH ×2 (08:16→10:00)
[2017-10-22] MEDS ORDERED: POTASSIUM 25 MEQ EFFERV TAB PO ONE (11:00)
--- NOTE | 2017-10-22 11:20 | P.PN ---
Subjective Date of Service: 10/22/17 Primary Care Provider: Dr Fiore Patient seen and examined at bedside with RN. Chart reviewed. Case discussed with general surgery. -patient is currently status post I and D of abdominal abscess. Doing well overall. No complaints to offer overnight. Denies having any fever chills nausea vomiting at this time. Review of Systems 10-point ROS is otherwise unremarkable Physical Examination - Vital Signs Temperature: 97.6 F Blood Pressure: 101/51 Pulse: 48 Respirations: 16 Pulse Ox (%): 95 - Physical Exam General: Alert, In no apparent distress HEENT: Atraumatic, PERRLA, EOMI Neck: Supple, JVD not distended Respiratory: Clear to auscultation bilaterally, Normal air movement Cardiovascular: Regular rate/rhythm, Normal S1 S2 Gastrointestinal: Normal bowel sounds, No tenderness Musculoskeletal: No tenderness Integumentary: Tenderness/swelling, Erythema, Other (Made abdominal abscess. Currently with 4 x 4 having some serosanguineous discharge.) Neurological: Normal speech, Normal tone, Normal affect Lymphatics: No axilla or inguinal lymphadenopathy - Studies Laboratory Data (last 24 hrs) 10/21/17 11:54: Creatinine Cancelled 10/21/17 11:54: WBC Cancelled, Hgb Cancelled, Hct Cancelled, Plt Count Cancelled 10/21/17 11:54: Sodium Cancelled, Potassium Cancelled, BUN Cancelled, Creatinine Cancelled, Glucose Cancelled, Total Bilirubin Cancelled, AST Cancelled, ALT Cancelled, Alkaline Phosphatase Cancelled, Amylase Cancelled, Lipase Cancelled 10/21/17 10:25: Sodium 135 L, Potassium 2.4 L*, BUN 18, Creatinine 1.20, Glucose 134 H, Total Bilirubin 2.4 H, AST 16, ALT 24, Alkaline Phosphatase 129 H , Amylase 30, Lipase 106 10/21/17 10:25: WBC 13.2 H, Hgb 13.1, Hct 39.2, Plt Count 214 Medications List Reviewed: Yes Assessment And Plan - Current Problems (Diagnosis) (1) Abdominal abscess Current Visit: Yes Status: Acute Plan: 5 to 6 CM abdominal Abscess on the CT. Failed Outpt therapy -General Surgery consulted. Rui appreciated -status post I and D of abdominal abscess POD day 1 -currently on vancomycin -Wound culture and Blood culture pending -advanced to a clear liquid diet (2) HTN (hypertension) Current Visit: Yes Status: Chronic Plan: Restart Home medication - Plan Currently pending clinical improvement. Wound cultures are pending at this time as well. Patient today postop day 1 will monitor for next 24-48 hr. Anticipate discharge home once wound culture is back. Discharge Plan: Home Plan to discharge in: 48 Hours - Code Status/Comfort Care Code Status Assessed: Yes Critical Care: No
[2017-10-22] MEDS: POTASS/SODIUM PHOSPHATE 1 PKT POWD.PACK PO SCH ×3 (12:17→14:14)
[2017-10-22] MEDS ORDERED: POTASSIUM PHOS IN 0.9 % NACL 15 MMOL/250 ML BAG IV ONE (13:00)
[2017-10-22] MEDS ORDERED: VANCOMYCIN 1.25 GM in NA CHLORIDE 0.9% 250 ML IVPB SCH (15:00)
[2017-10-22] MEDS: ACETAMINOPHEN 500 MG TAB PO PRN (16:48)
[2017-10-22 21:28] VITALS: O2SAT 97
[2017-10-23] MEDS: NA CHLORIDE 0.9% 1,000 ML IV SCH ×2 (00:01→10:01)
[2017-10-23 04:23] LABS: Absolute Monocytes 0.5 K/uL (0.1-1.3); Basophils % 0.3 % (0-1.3); Eosinophils % 0.5 % (0-4.4); Hematocrit 33.6 % (36.0-45.0); Lymphocytes % 16.1 % (15.3-44.8); MCH 28.4 pg (27.0-35.0); MCV 85.6 fL (80-100); MPV 9.9 fL (7.6-11.3); Monocytes % 4.3 % (3.3-12.3); RBC Red Blood Cell Count 3.92 M/uL (3.86-4.86)
[2017-10-23 05:11] LABS: Albumin 2.5 g/dL (3.4-5.0); Bilirubin Total 0.6 mg/dL (0.2-1.0); Magnesium 2.4 mg/dL (1.8-2.4); Phosphorus 2.7 mg/dL (2.5-4.9); Potassium 3.6 mmol/L (3.5-5.1); Protein, Total 6.2 g/dL (6.4-8.2)
[2017-10-23] MEDS ORDERED: POTASSIUM CL SA 10 MEQ TAB PO ONE (05:16)
[2017-10-23] MEDS ORDERED: LEVOTHYROXINE SOD 0.1 MG TAB PO SCH (06:30)
[2017-10-23] MEDS ORDERED: ATENOLOL 25 MG TAB PO SCH ×2 (09:00)
[2017-10-23] MEDS ORDERED: CHLORTHALIDONE 25 MG TAB PO SCH ×2 (09:00)
[2017-10-23] MEDS ORDERED: ATENOLOL PO SCH (09:00)
[2017-10-23] MEDS ORDERED: CHLORTHALIDONE PO SCH (09:00)
[2017-10-23] MEDS: ACETAMINOPHEN 500 MG TAB PO PRN (09:23)
[2017-10-23] MEDS ORDERED: LIDOCAINE JELLY 2%- 5 ML TUBE TOP ONE (10:41)
--- NOTE | 2017-10-23 10:58 | P.PN ---
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
[2017-10-23 12:39] VITALS: BP 98/54; TEMP 97.8
--- NOTE | 2017-10-23 14:16 | P.DS ---
Admission Date: 10/22/17 Discharge Date: 10/23/17 Primary Care Provider: Dr Fiore Disposition: ROUTINE DISCHARGE Discharge Condition: GOOD Reason for Admission: Abdominal Abscess - Problems (1) Abdominal abscess Status: Acute (2) HTN (hypertension) Status: Chronic Brief History of Present Illness: 62 y/o F with H/o of HTN presented to the ED with Abdominal Wall abscess. She was recently seen by her PCP 3 days and was started on PO ABX. Pt however had no improvement and thus decided to come to the ER. There was a concern that patient might not have tolerated her ABX however, Pt states she took her abx and did not have any resolution and thus he decided to come to the ER. Pt also reports Chills, Fever along with the abdominal pain. Denies CP, SOB, N/V or any other associated symptoms Pt seen the er and taken straight to the OR. Will be admitted to the hospital for Failed outpt therapy abdominal Abscess. Hospital Course: Overall during the hospital stay patient remained stable The patient was initially admitted to the hospital for abdominal wall abscess. Patient was taken to the OR by general surgery who did an I and D and was able to debris in the abscess found. Patient's most likely cause of the abscess was sebaceous cyst ruptured. Patient was started on IV antibiotics when she came in and was switched over to p.o. medicine after surgery. Patient did well overall for next 24 hr and thus was discharged home under stable condition. Patient was asked to do wound packing and was given a prescription for clindamycin for 10 days. No other complaints to offer and patient remained stable while here in the hospital. Vital Signs/Physical Exam: Temp Pulse Resp BP Pulse Ox 97.8 F 51 16 98/54 L 96 10/23/17 12:00 10/23/17 12:00 10/23/17 12:00 10/23/17 12:10/23/17 12:00 General: Alert, In no apparent distress HEENT: Atraumatic, PERRLA, EOMI Neck: Supple, JVD not distended Respiratory: Clear to auscultation bilaterally, Normal air movement Cardiovascular: Regular rate/rhythm, Normal S1 S2 Gastrointestinal: Normal bowel sounds, Other (Open wound right above the umbilicus. Currently clean dry and intact.), Tenderness Musculoskeletal: No tenderness Integumentary: No rashes Neurological: Normal speech, Normal tone, Normal affect Lymphatics: No axilla or inguinal lymphadenopathy Laboratory Data at Discharge: WBC 12.7 K/uL (4.3-10.9) H D 10/23/17 04:01 Hgb 11.2 g/dL (12.0-15.0) L 10/23/17 04:01 Hct 33.6 % (36.0-45.0) L 10/23/17 04:01 Plt Count 264 K/uL (152-406) D 10/23/17 04:01 Sodium 146 mmol/L (136-145) H 10/23/17 04:01 Potassium 3.6 mmol/L (3.5-5.1) 10/23/17 04:01 BUN 16 mg/dL (7-18) 10/23/17 04:01 Creatinine 1.00 mg/dL (0.55-1.3) 10/23/17 04:01 Glucose 107 mg/dL (74-106) H 10/23/17 04:01 Phosphorus 2.7 mg/dL (2.5-4.9) 10/23/17 04:01 Magnesium 2.4 mg/dL (1.8-2.4) D 10/23/17 04:01 Total Bilirubin 0.6 mg/dL (0.2-1.0) 10/23/17 04:01 AST 15 U/L (15-37) 10/23/17 04:01 ALT 18 U/L (12-78) 10/23/17 04:01 Alkaline Phosphatase 104 U/L (45-117) 10/23/17 04:01 Amylase 30 U/L (25-115) 10/21/17 10:25 Lipase 106 U/L (73-393) 10/21/17 10:25 Home Medications: Atenolol/Chlorthalidone [Atenolol-Chlorthal 50-25 Tb] 1 each PO DAILY 10/21/17 Levothyroxine Sodium 100 mcg PO DAILY 10/21/17 Clindamycin HCl [Cleocin HCl] 300 mg PO Q6H #40 capsule 10/23/17 LIDOCAINE 2% JELLY, 5mL [Xylocaine 2% Jelly*] 5 ml MM DAILY #1 tube 10/23/17 Tramadol HCl [Ultram] 50 mg PO Q6HP PRN #10 tablet 10/23/17 New Medications: Tramadol HCl [Ultram] 50 mg PO Q6HP PRN #10 tablet PRN Reason: Pain Clindamycin HCl [Cleocin HCl] 300 mg PO Q6H #40 capsule LIDOCAINE 2% JELLY, 5mL [Xylocaine 2% Jelly*] 5 ml MM DAILY #1 tube Patient Discharge Instructions: Please f.u with PCP and Dr Badillo in 1 to 2 weeks post discharge. New medication. clindamycin 300mg q6h for 10 days Diet: Regular Activity: Ad fadumo Followup: Frank Badillo MD [ACTIVE - CAN ADMIT] - 1 Week
== END 2017-10-23 13:22 | disposition home or self-care (01) | DRG 603 ==
LOC: ER 09:53 → ERHOLD 14:51 → 4TH 17:43 → OBSVTOIN 10-22 12:39
PROVIDERS: ADMIT Family Medicine; ATTEND Family Medicine
PROC: 0HB7XZZ Excision of Abdomen Skin, External Approach (ICD-10-PCS; principal; 2017-10-21 16:30)
DX: L02.211 Cutaneous abscess of abdominal wall (principal); L72.3 Sebaceous cyst; I10 Essential (primary) hypertension; Z85.3 Personal history of malignant neoplasm of breast; Z88.0 Allergy status to penicillin; Z88.2 Allergy status to sulfonamides
CPT/HCPCS: 36415; 74177; 80048; 80053; 80076; 81003; 82150; 83605; 83690; 83735; 84100; 84132; 84145; 85025; 87040; 87070; 87075; 87205; 88304; 88305; 96365; 99285; J2405; J3010; J3370; J3475; J7030; Q9967